=== PATIENT | male | born 1960 | race Caucasian/White ===

== ENCOUNTER → 2021-09-21 14:08 | Outpatient (CLI) | payer BC, SELFPAY ==
--- NOTE | 2021-09-21 14:28 | CA_ITS ---
FINAL REPORT TECHNIQUE: Color Doppler, duplex Doppler and compression sonography of the right lower extremity venous system was performed. CLINICAL HISTORY: BRUISING POST MID CALF WITH A KNOT,NKI,PT ON ASA AND BRILINTA FINDINGS: There is no evidence of deep venous thrombosis from the level of the groin to the calf. The veins are patent and compressible. There is a 1.8 cm cystic and solid area in the right posterior calf of uncertain etiology but may represent a hematoma or mass. IMPRESSION: No evidence of deep venous thrombosis right lower extremity. Cystic and solid area in the right posterior calf may represent a hematoma or mass. Consider follow-up ultrasound. Reviewed, Interpreted and Dictated by Jimi Novak III, MD Transcribed by Jessica Kruger Authenticated and [facility]
== END ==
PROVIDERS: PCP Internal Medicine Adolescent Medicine; Visit Provider Internal Medicine Adolescent Medicine
DX: M79.661 Pain in right lower leg (principal); Z79.01 Long term (current) use of anticoagulants
CPT/HCPCS: 93971

== ENCOUNTER 2022-01-26 14:34 | Emergency (ER) | payer BC, SELFPAY ==
[2022-01-26 14:45] VITALS: BP 131/92; PULSE 78; RESP 18; TEMP 36.5; O2SAT 100; BMI 25.1
[2022-01-26 14:50] VITALS: BP 138/82; PULSE 83; RESP 18; TEMP 36.8; O2SAT 98; BMI 25.8
[2022-01-26 15:20] VITALS: BP 0/0; PULSE 83; RESP 18; TEMP 36.8; O2SAT 98
--- NOTE | 2022-01-26 15:26 | EXP.UTC ---
Discharge Plan Disposition Patient Disposition: Home, Self-Care Condition: Good Prescriptions Prescriptions: New amoxicillin 500 mg capsule 500 mg PO BID 5 Days Qty: 10 0RF Referrals Follow up/Referrals: Kumar Price MD [Primary Care Provider] - See instructions Activity Restrictions/Add. Instructions Additional Instructions/Restrictions: ice pack to area 20 min every couple hours to help with swelling and bruising Suture instructions: ?You have required stitches today. Please read the following instructions so you know how to care for them: ?1. Keep wound area dry for the first 24 hours. 2?? May clean gently with mild soap and water, after 48 hours to prevent crusting over suture knots. 3. You may shower if your provider gives permission but do not take a bath until the skin is healed.. 4. Never leave a wet dressing or Band-Aid on your stitches as this allows bacteria to reach the area and may cause infection. Band-aids can cause the wound to sweat and not recommended to wear for long periods of time Watch for signs of infection: ? Increasing redness, tenderness or warmth around the suture site ? Unusual swelling around the site ? Appearance of pus around each suture or any red streaks ? Fever If you develop any of the above signs or symptoms of infection, Follow up with Family Physician immediately 5. Suture removal in _8-10___days 6. Return to [facility] or follow up with family doctor for removal. This can be done by any medical provider dur?ing regular hours on Friday through Friday, by appointment. Clinical Impressions Clinical Impression: Laceration Instructions Patient Instructions: DI for Laceration Repair, DI for Hematoma (Bruise) Discharge ED Provider: Pamela Ansari [facility] HPI General Stated complaint: AO 01/26@home@1420 lac on back of Rt hand Mode of Arrival: Ambulatory Source of Information: Patient Limitations: No Limitations Time Seen by Provider: 01/26/22 15:26 Description of Symptoms (Recalled from Triage Doc. 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 HEENT Symptoms (Recalled from RN notes): No Resp Symptoms (Recalled from RN notes): No Skin Symptoms (Recalled from RN notes): Yes MS Symptoms (Recalled from RN notes): No Functional Status (Recalled from RN notes): WNL History of Present Illness Provider Complaint: Patient state that he was working on [employer] when his hand slipped and he hit the top of his hand against a piece of metal States that he is on blood thinners and it was bleeding so he came in Related Data Previous Rx's Medication Instructions Recorded amoxicillin 500 mg capsule 500 mg PO BID 5 days #10 caps 01/26/22 Allergies Allergy/AdvReac Type Severity Reaction Status Date / Time No Known Allergies Allergy Verified 01/26/22 15:12 Worker's Comp Is this a Worker's Comp case?: No PFSH PFSH Social History Smoking Status: Unknown if ever smoked alcohol intake: never current occupational status: employed Travel in the last 8 weeks: None ROS Obtained: Yes All systems reviewed & no additional complaints except as documented and Yes Systems reviewed as appropriate & no additional complaints except as documented Constitutional Constitutional: Reports system reviewed and no additional complaints, except as documented and Reports as per HPI Integumentary/Breasts Skin/Breast: Reports system reviewed and no additional complaints, except as documented, Reports as per HPI and Reports other (laceration to top of hand) Physical Exam General General appearance: alert and in no apparent distress Respiratory Respiratory exam: Present normal lung sounds bilaterally and respiratory distress Cardiovascular Cardiovascular exam: Present regular rate and normal rhythm Expanded Upper Extremity Exam Right: Hand exam: Present laceration Hand L/R back image: 1. laceration with bruising noted and swelling slow bleedi
== END 2022-01-26 16:05 | disposition home or self-care (01) ==
PROVIDERS: Emergency Provider Nurse Practitioner; PCP Internal Medicine Adolescent Medicine
DX: S61.411A Laceration without foreign body of right hand, initial encounter (principal); W26.8XXA Contact with other sharp object(s), not elsewhere classified, initial encounter; Z23 Encounter for immunization
CPT/HCPCS: 12001; 90471; 90715; 99213; G0463

== ENCOUNTER 2022-02-04 08:21 | Emergency (ER) | payer BC, SELFPAY ==
[2022-02-04 08:21] VITALS: BP 113/76; PULSE 89; RESP 18; TEMP 36.6; O2SAT 100; BMI 24.8
[2022-02-04 09:13] VITALS: BP 113/76; PULSE 89; RESP 18; TEMP 36.6; O2SAT 100
== END 2022-02-04 09:14 | disposition home or self-care (01) ==
PROVIDERS: Emergency Provider Nurse Practitioner; PCP Internal Medicine Adolescent Medicine
DX: Z48.02 Encounter for removal of sutures (principal)

== ENCOUNTER 2022-08-25 15:30 | Emergency (ER) | payer BC, SELFPAY ==
[2022-08-25 15:40] VITALS: BP 120/83; PULSE 93; RESP 22; TEMP 36.9; O2SAT 97; BMI 25.1
--- NOTE | 2022-08-25 16:10 | EXP.UTC ---
Discharge Plan Disposition Patient Disposition: Home, Self-Care Condition: Good Prescriptions Prescriptions: New amoxicillin-pot clavulanate 875-125 mg Tablet 1 tab PO Q12H Qty: 20 0RF guaifenesin [Mucinex] 600 mg tablet extended release 12hr 600 - 1,200 mg PO BID PRN (Reason: cough) Qty: 20 0RF No Action amoxicillin 500 mg capsule 500 mg PO BID 5 Days Qty: 10 0RF Referrals Follow up/Referrals: Kumar Price MD [Primary Care Provider] - See instructions Activity Restrictions/Add. Instructions Additional Instructions/Restrictions: Drink extra fluids with and between meals. If you have difficulty drinking, try very small amounts of water or suck on ice chips. ? Avoid fruit juices, as these do not replace minerals and can actually increase diarrhea. ? Children and adults can use sports drinks to replenish electrolytes. Younger children and infants should use products formulated for children, like oral rehydration solutions. ? Eat food in small amounts and let your stomach recover. ? Get lots of rest. You may feel tired or weak. ? No greasy or fried foods for the next 24-48 hours BRAT diet Bananas Rice Apples and Everest ? Make sure to drink plenty of liquids ? Return if needed ? Straight to ER if any life threatening symptoms ? You was given an outpatient order for diarrhea panel, please collect specimen and bring back to outpatient lab then call back to the [facility] or follow up with family doctor for results ? Follow up with family doctor in the next 48-72 hours if no improvement or any worsening of symptoms Clinical Impressions Clinical Impression: Bronchitis Sinusitis Qualifiers: Sinusitis location: unspecified location Chronicity: unspecified Qualified Code(s): J32.9 - Chronic sinusitis, unspecified Instructions Patient Instructions: Sinusitis, Diarrhea, Acute Bronchitis, DI for Sinusitis Discharge ED Provider: Pamela Ansari [facility] HPI General Stated complaint: chest se, diarrhea Mode of Arrival: Ambulatory Source of Information: Patient Limitations: No Limitations Time Seen by Provider: 08/25/22 16:10 Description of Symptoms (Recalled from Triage Doc. by RN): PATIENT C/O CHEST CONGESTION FOR APPROX 2.5 WEEKS AND DIARRHEA SINCE FRIDAY NIGHT HEENT Symptoms (Recalled from RN notes): No Resp Symptoms (Recalled from RN notes): Yes Skin Symptoms (Recalled from RN notes): No MS Symptoms (Recalled from RN notes): No Functional Status (Recalled from RN notes): WNL History of Present Illness Provider Complaint: Patient states that he has been having sinus pain and pressure along with congestion in his chest that seems to have come and gone for the last 2 weeks and he is coughing up some mucous at times States that then on Friday night he started with diarrhea States that he does have some pressure behind his eyes and worried that it may be trying to settle in his chest Related Data Previous Rx's Medication Instructions Recorded amoxicillin 500 mg capsule 500 mg PO BID 5 days #10 caps 01/26/22 amoxicillin 875 mg-potassium 1 tab PO Q12H #20 tabs 08/25/22 clavulanate 125 mg tablet guaifenesin 600 mg tablet, 600 - 1,200 mg PO BID PRN cough 08/25/22 extended release 12 hr (Mucinex) #20 tabs Allergies Allergy/AdvReac Type Severity Reaction Status Date / Time No Known Allergies Allergy Verified 01/26/22 15:12 Worker's Comp Is this a Worker's Comp case?: No [facility] Disclaimer: The information contained in this section may have been updated after the patient was seen, as this information can be updated by other users. Social History (Updated 01/26/22 @ 16:00 by Pamela Ansari APRN) Smoking Status: Unknown if ever smoked alcohol intake: never current occupational status: employed Travel in the last 8 weeks: None ROS Obtained: Yes All systems reviewed & no additional complaints except as documented and Y
[2022-08-25 16:23] VITALS: BP 120/83; PULSE 93; RESP 22; TEMP 36.9; O2SAT 97
== END 2022-08-25 16:42 | disposition home or self-care (01) ==
PROVIDERS: Emergency Provider Nurse Practitioner; PCP Internal Medicine Adolescent Medicine
DX: J20.9 Acute bronchitis, unspecified (principal); J01.90 Acute sinusitis, unspecified; R19.7 Diarrhea, unspecified
CPT/HCPCS: 99212; 99214; G0463

== ENCOUNTER 2023-05-25 08:03 | Observation (INO) | payer MEDICARE, BC, SELFPAY ==
[2023-05-25] VITALS (11 sets, daily range): BP systolic 92–119; BP diastolic 59–78; PULSE 60–70; RESP 16–20; TEMP 36.5–36.9; O2SAT 94–97; BMI 25.8; BMI 25.1
--- NOTE | 2023-05-25 08:08 | ECG_ITS ---
APPROVED REPORT Exam: Resting ECG HR:60 bpm ECG Measurements Heart Rate 60 AXES AL 131 P 36 QRSd 192 QRS 252 QT 451 T 160 QTc 452 Conclusion ELECTRONIC ATRIAL PACEMAKER ELECTRONIC VENTRICULAR PACEMAKER ABNORMAL RHYTHM ECG UNCONFIRMED REPORT Electronically signed by : Kumar Price MD 05/26/2023 17:58:48
--- NOTE | 2023-05-25 08:28 | PC.NURSE ---
Dr. Schulz at [facility] for pt eval
--- NOTE | 2023-05-25 08:38 | XR_ITS ---
PROCEDURE INFORMATION: Exam: XR Chest Exam date and time: 05/25/2023 8:38 AM Age: 63 years old Clinical indication: Dyspnea; Prior surgery; Surgery date: 6+ months; Surgery type: Pacemaker TECHNIQUE: Imaging protocol: Radiologic exam of the chest. Views: 1 view. COMPARISON: No relevant prior studies available. FINDINGS: Tubes, catheters and devices: Cardiac rhythm maintenance device is in place. Lungs: Unremarkable. No consolidation. Pleural spaces: Unremarkable. No pleural effusion. No pneumothorax. Heart/Mediastinum: Unremarkable. No cardiomegaly. Bones/joints: Unremarkable. IMPRESSION: No acute findings.
--- NOTE | 2023-05-25 08:39 | ED_ITS ---
Discharge Plan Disposition Patient Disposition: Still a Patient Prescriptions Prescriptions: No Action guaifenesin [Mucinex] 600 mg tablet extended release 12hr 600 - 1,200 mg PO BID PRN (Reason: cough) Qty: 20 0RF atorvastatin 80 mg tablet 80 mg PO DAILY Patient Comments: TAKE 1 TABLET BY MOUTH EVERY DAY FOR 30 DAYS metoprolol succinate 100 mg tablet extended release 24 hr 100 mg PO DAILY Patient Comments: TAKE 1 TABLET BY MOUTH EVERY DAY DO NOT CRUSH OR CHEW clopidogrel 75 mg tablet 75 mg PO DAILY Patient Comments: TAKE 1 TABLET BY MOUTH EVERY DAY spironolactone 25 mg tablet 25 mg PO DAILY Patient Comments: TAKE 1 TABLET BY MOUTH EVERY DAY gabapentin 300 mg capsule 300 mg PO TID Patient Comments: TAKE 1 CAPSULE BY MOUTH 4 TIMES A DAY. Jardiance 10 mg tablet 10 mg PO DAILY Patient Comments: TAKE 1 TABLET BY MOUTH EVERY DAY Entresto 97-103 mg tablet 1 tab PO DAILY Patient Comments: TAKE 1 TABLET BY MOUTH TWICE A DAY FOR 90 DAYS Referrals Follow up/Referrals: Kumar Price MD [Primary Care Provider] - See instructions Clinical Impressions Clinical Impression: Unstable angina Discharge ED Provider: Padma Schulz [facility] General Chief Complaint: Chest Pain Stated Complaint: Angina with nitroglycerin, Sent by [employer] Time Seen by Provider: 05/25/23 08:27 Mode of Arrival: Ambulatory Source of Information: Patient and Spouse Limitations: No Limitations Description of Symptoms (Recalled from ER Triage Doc. by RN): pt had one episode of chest pressure last night at 2000 and took one nitro and got relief. p-t had cardiac hx and sees at and was advised to come this morning and get checked out. pt has a pacer/defib History of Present Illness HPI narrative: Patient is a 63-year-old male present today with chest pain. Has a known history of coronary artery disease had an [place] in 2018 and subsequently developing heart failure with an ejection fraction of 25 to 35% has an AICD and pacemaker in place. He is followed by [facility] cardiology. Has had a stress test since that time last year but no intervention has been done specifically no left heart cath has been done since 2018. Last night around 730 began having substernal chest discomfort radiating into his left arm no diapho resis or definitive exertional component of this. Also was not dyspneic in association with this. This lasted about 2 to 2-1/2 hours and has since resolved. However he woke up and was extremely fatigued this morning. No ongoing chest pain. He called his soils technician late last evening and was called by his soils technician and told to come to the emergency department today. Related Data Home Medications Medication Instructions Recorded Confirmed atorvastatin 80 mg tablet 80 mg PO DAILY 05/25/23 05/25/23 clopidogrel 75 mg tablet 75 mg PO DAILY 05/25/23 05/25/23 empagliflozin 10 mg tablet 10 mg PO DAILY 05/25/23 05/25/23 (Jardiance) gabapentin 300 mg capsule 300 mg PO TID 05/25/23 05/25/23 metoprolol succinate 100 mg 100 mg PO DAILY 05/25/23 05/25/23 tablet,extended release 24 hr sacubitril 97 mg-valsartan 103 mg 1 tab PO DAILY 05/25/23 05/25/23 tablet (Entresto) spironolactone 25 mg tablet 25 mg PO DAILY 05/25/23 05/25/23 Previous Rx's Medication Instructions Recorded guaifenesin 600 mg tablet, 600 - 1,200 mg PO BID PRN cough 08/25/22 extended release 12 hr (Mucinex) #20 tabs Allergies Allergy/AdvReac Type Severity Reaction Status Date / Time No Known Allergies Allergy Verified 01/26/22 15:12 [facility] Disclaimer: The information contained in this section may have been updated after the patient was seen, as this information can be updated by other users. Social History (Updated 01/26/22 @ 16:00 by Pamela Ansari APRN) Smoking Status: Never smoker alcohol intake: never current occupational status: employed Travel in the last 8 weeks: None ROS Obtained: Yes All systems reviewed & no additional complaints except as documented Physical Exam General General appearance: alert Respiratory Respiratory exam: Present normal lung sounds bilaterally Cardiovascular Cardiovascular exam: Present regular rate and normal rhythm Neurological Exam Neurological exam: Present alert HEART Score HEART Score HEART Score assessment performed?: Yes History (anamnesis): Highly suspicious ECG: Non-specific disturbance Age: 45-65 years Risk factors: Atherosclerosis history Troponin: </= normal limit HEART Score: 6 Critical Care Critical Care Time Critical Care Time: Yes Attestation: On 05/25/23, the high probability of a clinically significant, sudden or life threatening deterioration of the following system(s) required my full and direct attention, intervention and personal management. The time I documented below is in addition to time spent performing reported procedures but includes the following listed in this critical care notation. Total Time Total Critical Care Time: 35 Medical Decision Making Jaren Inquiry Pt receiving controlled substance: No Vital Signs Vital Signs: 05/25/23 08:05 05/25/23 08:18 05/25/23 08:30 Temperature 97.7 F Temperature Source Oral Pulse Rate 63 70 Pulse Rate [Right Radial] 63 Respiratory Rate 17 17 Blood Pressure 117/78 Blood Pressure [Right Arm] 111/77 Blood Pressure Mean [Right Arm] 88 02 Sat by Pulse Oximetry 97 96 Oxygen Delivery Method Room Air Room Air 05/25/23 09:00 05/25/23 09:30 Temperature Temperature Source Pulse Rate 64 60 Pulse Rate [Right Radial] Respiratory Rate 16 16 Blood Pressure 92/59 L 95/61 L Blood Pressure [Right Arm] Blood Pressure Mean [Right Arm] 02 Sat by Pulse Oximetry 95 95 Oxygen Delivery Method Room Air Room Air Lab Data Lab results reviewed: Yes I reviewed the patient's lab results. Labs: Lab Results 05/25/23 08:15: WBC 5.3, RBC 6.32 H, Hgb 18.2 H, Hct 54.7 H, MCV 86.6, MCH 28.6, MCHC 33.1, RDW 14.3, Plt Count 142, MPV 8.1, Neut % (Auto) 71.4, Lymph % (Auto) 17.2, [place] % (Auto) 7.7, Eos % (Auto) 3.2, Baso % (Auto) 0.5, Neut # (Auto) 3.8, Lymph # (Auto) 0.9, [place] # (Auto) 0.4, Eos # (Auto) 0.2, Baso # (Auto) 0.0, Sodium 138, Potassium 4.0, Chloride 105, Carbon Dioxide 26, Anion Gap 11.0, BUN 16, Creatinine 1.20, Estimated Creat Clear 69, Estimated GFR 61, Est GFR ( Amer) 74, Glucose 109 H, Calcium 9.0, Total Bilirubin 1.5 H, AST 34, ALT 37, Alkaline Phosphatase 71, Troponin I < 0.01, Total Protein 6.9, Albumin 4.2, Globulin 2.7, Albumin/Globulin Ratio 1.6, Lipase 38 05/25/23 08:15 05/25/23 08:15 Response Orders (Tests/Meds): ED MEDICATIONS Generic Name Dose Route Start Last Admin Trade Name Deborah PRN Reason Stop Dose Admin Aspirin 243 mg 05/25/23 10:07 Aspirin 81mg Chewable Tablet PO 05/25/23 10:08 ONCE ONE ORDERS Category Date Time Status CXR --portable [XR chest portable] Stat Exams 05/25/23 08:38 Completed CBC w/Auto Diff [Complete Blood Count Auto Diff] Stat Lab 05/25/23 08:15 Completed CMP [Comprehensive Metabolic Panel] Stat Lab 05/25/23 08:15 Completed Lipase Stat Lab 05/25/23 08:15 Completed Trop I [Troponin I] Stat Lab 05/25/23 08:15 Completed Troponin I Q3H Lab 05/25/23 11:45 Ordered Troponin I Q3H Lab 05/25/23 14:45 Ordered ECG Data Tracing #1: Attestation: I reviewed this ECG and interpreted as documented below: ECG Narrative: Ventricular rate of 60 there is an electronic atrial pacemaker electronic ventricular pacemaker Sgarbossa is negative cannot rule out ischemia appropriately paced rhythm from atrial and ventricular standpoint MDM Narrative Medical Decision Narrative: Patient is an asymptomatic 63-year-old male presents today after chest pain episode yesterday evening. With his particular history of coronary disease and known heart failure he has very high risk. His symptoms certainly sound like an anginal episode last night. I do not suspect pulmonary embolism etc. At this point he should have an elevation in the troponin from a single test if there was an injury. I discussed with him that my recommendation will be for downstream cardiology testing regardless of whether or not there is an elevation of his troponin at this point as he would not fall into the low risk category utilizing heart scoring. I have asked him to decide whether not he wants to be followed at [facility] and be intervened there or whether he would be okay staying at [facility] to be evaluated by her soils technician. Will reassess after his troponin has returned. EKG is nonactionable. Is appropriately paced but cannot rule out ischemia. Reassessment 10:15 AM patient remains asymptomatic chest x-ray performed to person interpreted shows no acute cardiopulmonary emergency. Troponin is negative. Patient still very high risk from a restratification standpoint. Remainder of his workup is negative. I discussed with him whether or not he wanted to have me discuss his case with [facility]ology versus staying here and having a left heart cath with Dr. Gutierrez. After extensive discussion we had shared decision-making with staying at this hospital and having an intervention here if necessary. I spoke with Dr. Gutierrez who agreed with this plan. I subsequently spoke to Dr. Burch with hospital medicine who will admit the patient for further evaluation and treatment with the plan today The patient tomorrow.
[2023-05-25 08:44] LABS: Basophils % 0.5 % (0.1-2.0); Eosinophils # 0.2 K/mm3 (0.0-0.4); Eosinophils % 3.2 % (0.1-12.0); Hematocrit 54.7 % (42.0-52.0); Lymphocytes # 0.9 K/mm3 (0.7-4.5); Lymphocytes % 17.2 % (10-50); Mean Corpuscular HGB Conc 33.1 g/dL (31.8-35.4); Mean Corpuscular Hemoglobin 28.6 pg (27.0-31.2); Mean Corpuscular Volume 86.6 fl (80-94); Mean Platelet Volume 8.1 fl (7.4-10.4); Monocytes # 0.4 K/mm3 (0.1-1.0); Monocytes % 7.7 % (1.7-9.3); Neutrophils # 3.8 K/mm3 (1.8-7.8); Neutrophils % 71.4 % (37.0-80.0); Platelet Count 142 K/mm3 (142-424); Red Blood Count 6.32 M/mm3 (4.60-6.20); Red Cell Distribution Width 14.3 % (11.5-17.5); White Blood Count 5.3 K/mm3 (4.8-10.8)
[2023-05-25 08:45] LABS: Chloride 105 mmol/L (98-107); Sodium 138 mmol/L (136-145)
[2023-05-25 08:47] LABS: Alanine Aminotransferase 37 U/L (12-78); Alkaline Phosphatase 71 U/L (38-126); Aspartate Amino Transferase 34 U/L (17-59); Bilirubin,Total 1.5 mg/dl (0.2-1.3); Blood Urea Nitrogen 16 mg/dl (9-20); Creatinine Clearance Estimated 69 mL/min (50-200); Estimated Glomerular Filt Rate 61 ml/min (>60); GFR (African American) 74 ML/MIN (>60); Lipase 38 U/L (23-300)
[2023-05-25 08:48] LABS: Albumin Level 4.2 g/dl (3.5-5.0); Albumin/Globulin Ratio 1.6 (1.1-1.8); Carbon Dioxide 26 mmol/L (22.0-30.0); Globulin 2.7 g/dL (1.3-3.2); Glucose 109 mg/dl (74-100); Total Protein,Serum 6.9 g/dl (6.3-8.2)
[2023-05-25 08:55] LABS: Hemoglobin 18.2 g/dL (14.1-18.0)
[2023-05-25 09:02] LABS: Troponin I < 0.01 ng/ml (0.00-0.034)
--- NOTE | 2023-05-25 09:43 | PC.NURSE ---
Dr. Schulz at [facility] to update pt/visitor on results and POC
--- NOTE | 2023-05-25 09:50 | PC.NURSE ---
DR HAYS SPEAKING WITH DR CHERRY
--- NOTE | 2023-05-25 09:54 | PC.NURSE ---
DR HAYS ATTEMPTED TO CONTACT DR BENDER
--- NOTE | 2023-05-25 09:58 | PC.NURSE ---
DR HAYS SPEAKING WITH DR BENDER
--- NOTE | 2023-05-25 10:02 | PC.NURSE ---
PILOT [employer]AT CAPTAIN NOTIFIED OF ADMISSION
--- NOTE | 2023-05-25 10:15 | PC.NURSE ---
Placed order for lunch tray
[2023-05-25] MEDS: ASPIRIN 81MG CHEWABLE TABLET 243 MG PO (10:55)
[2023-05-25] MEDS: HEPARIN SODIUM 5,000 UNIT/ML VIAL 5000 UNIT SQ ×2 (10:55→21:43)
--- NOTE | 2023-05-25 12:03 | HMH.PHAINT1 ---
Pharmacy Intervention Comments: MEDICATION RECONCILIATION COMPLETE USING EXTERNAL PHARMACY FILL HISTORY.
[2023-05-25 12:18] LABS: Troponin I < 0.01 ng/ml (0.00-0.034)
--- NOTE | 2023-05-25 12:22 | PC.NURSE ---
PT provided with lunch tray and assisted with set up. No other needs voiced and call light within reach.
[2023-05-25] MEDS: GABAPENTIN 300MG CAPSULE 300 MG PO ×2 (12:37→21:43)
--- NOTE | 2023-05-25 13:07 | EXP.HP ---
History of Present Illness *Admission Date: 05/25/23 *Reason for visit:: Chest pain *History of present illness: Mr. Rg is a 63-year-old male with extensive cardiac history. Previous MO in 2018, subsequently developed heart failure with reduced ejection fraction approximately 25%. Has had a pacemaker/defibrillator in place since. Generally follows at with cardiology. States that he had an increased episode of chest pressure last night that got better with nitro. Shortness of breath is stable but chronic. Denies any nausea or vomiting. No syncope. Chest pressure caused him to come to the ER for evaluation. Initial troponin negative. No new ischemic changes on EKG. Given significant cardiac history and high risk patient, cardiology was contacted. Recommend admission for further management. Medicine consulted for admission. On evaluation, patient reports that he was more tired this morning than usual. is at bedside with him. No chest pain at this time. Stable on room air. [facility] Disclaimer: The information contained in this section may have been updated after the patient was seen, as this information can be updated by other users. Medical History CAD (coronary artery disease) Cardiac pacemaker in situ HFrEF (heart failure with reduced ejection fraction) Social History Smoking Status: Never smoker alcohol intake: never current occupational status: employed Travel in the last 8 weeks: None Review of Systems Review of Systems Review of systems (narrative): 14 point review of systems performed, pertinent positives and negatives as per [facility] Meds Home Medications and Allergies Home Medications Medication Instructions Recorded Confirmed Type aspirin 81 mg tablet,delayed 81 mg PO DAILY 05/25/23 05/25/23 History release atorvastatin 80 mg tablet 80 mg PO DAILY Cholesterol 05/25/23 05/25/23 History clopidogrel 75 mg tablet 75 mg PO DAILY Blood Thinner 05/25/23 05/25/23 History empagliflozin 10 mg tablet 10 mg PO DAILY Heart Disease 05/25/23 05/25/23 History (Jardiance) gabapentin 300 mg capsule 300 mg PO TID NERVE PAIN 05/25/23 05/25/23 History guaifenesin 600 mg tablet, 600 - 1,200 mg PO BIDP PRN Cough 05/25/23 05/25/23 History extended release 12 hr (Mucinex) metoprolol succinate 100 mg 100 mg PO DAILY High Blood Pressure 05/25/23 05/25/23 History tablet,extended release 24 hr sacubitril 97 mg-valsartan 103 mg 1 tab PO BID High Blood Pressure 05/25/23 05/25/23 History tablet (Entresto) spironolactone 25 mg tablet 25 mg PO DAILY Fluid 05/25/23 05/25/23 History New Prescriptions to Start Prescriptions: Allergies Allergy/AdvReac Type Severity Reaction Status Date / Time No Known Allergies Allergy Verified 01/26/22 15:12 Exam Data for Last 24 hours Vital signs and Labs for Last 24 Hours: Temp Pulse Resp BP Pulse Ox O2 Del Method 97.7 F 60 20 104/78 L 94 L Room Air 05/25/23 08:05 05/25/23 11:54 05/25/23 11:54 05/25/23 11:54 05/25/23 11:54 05/25/23 11:54 Laboratory Results - last 24 hr 05/25/23 08:15: WBC 5.3, RBC 6.32 H, Hgb 18.2 H, Hct 54.7 H, MCV 86.6, MCH 28.6, MCHC 33.1, RDW 14.3, Plt Count 142, MPV 8.1, Neut % (Auto) 71.4, Lymph % (Auto) 17.2, [place] % (Auto) 7.7, Eos % (Auto) 3.2, Baso % (Auto) 0.5, Neut # (Auto) 3.8, Lymph # (Auto) 0.9, [place] # (Auto) 0.4, Eos # (Auto) 0.2, Baso # (Auto) 0.0, Sodium 138, Potassium 4.0, Chloride 105, Carbon Dioxide 26, Anion Gap 11.0, BUN 16, Creatinine 1.20, Estimated Creat Clear 69, Estimated GFR 61, Est GFR ( Amer) 74, Glucose 109 H, Calcium 9.0, Total Bilirubin 1.5 H, AST 34, ALT 37, Alkaline Phosphatase 71, Troponin I < 0.01, Total Protein 6.9, Albumin 4.2, Globulin 2.7, Albumin/Globulin Ratio 1.6, Lipase 38 05/25/23 11:19: Troponin I < 0.01 I & O for Last 24 hours: Intake & Output 05/22/23 05/23/23 05/24/23 05/25/23 23:59 23:59 23:59 23:59 Weight 79.379 kg Constitutional Constitutional: no acute distress *Routine HEENT Exam Head: Present normocephalic Eye: Present EOMI and PERRL ENT: Present mucous membranes moist *Routine Neck Exam Neck: Present supple; Absent lymphadenopathy Routine Chest/Breast/Axilla Exam Chest wall: Present pacemaker *Routine Respiratory Exam Respiratory: Present CTA bilaterally *Routine Cardiovascular Exam Cardiovascular: Present RRR *Routine Abdominal Exam Abdominal: Present soft and normoactive bowel sounds; Absent tenderness *Routine Rectal Exam Rectal:: deferred *Routine Genitalia Exam Genitalia:: deferred *Routine Extremities Exam Extremities: Absent cyanosis, clubbing or edema *Routine Skin Exam Skin: Present warm; Absent rash *Routine Neurological Exam Neurological: Present alert, oriented X3 and moving all extremities; Absent altered mental status Assessment and Plan *Assessment and plan (1) Unstable angina: Status: Acute Category: Medical Code(s): I20.0 - Unstable angina (2) CAD (coronary artery disease): Status: Acute Category: Medical Code(s): I25.10 - Atherosclerotic heart disease of [place] coronary artery without angina pectoris (3) HFrEF (heart failure with reduced ejection fraction): Status: Acute Category: Medical Code(s): I50.20 - Unspecified systolic (congestive) heart failure (4) Cardiac pacemaker in situ: Status: Acute Category: Medical Code(s): Z95.0 - Presence of cardiac pacemaker Plan 63-year-old male with extensive cardiac history, MO in 2018. Presents with unstable angina at rest. Discussed case with ER physician, requests for serial troponins, monitoring on telemetry, and cardiology consult in the morning. Medicine agreed to admit for further management. Problems addressed as follows: Unstable angina CAD Heart failure with reduced ejection fraction Hypertension -Presents with onset and angina initial troponin negative. -Cardiology consulted, appreciate their recommendations. N.p.o. at midnight for possible heart cath tomorrow -Continue as 1 mg daily, Lipitor 80 mg nightly, Plavix 75 mg daily Jardiance 10 mg daily, metoprolol 100 mg daily, Entresto twice daily, spironolactone 25 mg daily -Echo ordered for the morning -EKG reviewed, no acute ischemic changes on personal review Labs relatively normal. Kidney function normal with BUN 16, creatinine 1.2. No leukocytosis. Serial troponins less than 0.01. Repeat CBC, CMP, magnesium ordered for the morning. Full code Cardiac diet, n.p.o. at midnight Heparin 5000 units 3 times daily
--- NOTE | 2023-05-25 13:18 | PC.NURSE ---
Rounded on pt. Bed adjusted per request. No other needs voiced and call light within reach.
--- NOTE | 2023-05-25 14:23 | PC.NURSE ---
Called report to Eloise BEACH on 2nd floor and answered all questions
--- NOTE | 2023-05-25 15:16 | PC.NURSE ---
patient arrived at 2:49 from ED
[2023-05-25 16:34] LABS: Troponin I < 0.01 ng/ml (0.00-0.034)
[2023-05-25] MEDS: SACUBITRIL/VALSARTAN 24-26MG TABLET 4 EACH PO (21:42)
[2023-05-26] VITALS (13 sets, daily range): BP systolic 96–115; BP diastolic 60–74; PULSE 54–74; RESP 16–22; TEMP 36.4–37; O2SAT 93–96; BMI 25.2
[2023-05-26] MEDS: HEPARIN SODIUM 5,000 UNIT/ML VIAL 5000 UNIT SQ (01:57)
--- NOTE | 2023-05-26 06:00 | CA_ITS ---
APPROVED REPORT EXAM: Comprehensive 2D, Doppler, and color-flow Echocardiogram Financial Intern: Saira Alvares RDCS Ht: 5 ft 9 in Wt: 170lbs BSA: 1.93 BP: 104/78 mmHg Indications: CP, CAD CM, DECREASED EF, CHF M-Mode Dimensions RVDd 2.53 cm (0.9-2.6) LA Diam 3.55 cm (1.9-4.0) LVDd 6.10 cm (3.5-5.7) LVDs 4.50 cm (3.5-5.7) IVSd 0.80 cm (0.6-1.1) PWd 0.96 cm (0.6-1.1) EF (Teich) 50.60% FS 26.20% EDV (Teich) 186.90 mL ESV (Teich) 92.40 mL LV Diastology E Decel Time 193 (160-240 msec) E/A Ratio 0.5 Mitral Valve MV E Max Jonnie. 30.0 (40-130 cm/s) MV A Velocity 60.0 (40-130 cm/s) E/A Ratio 0.49 MV PHT 57.0 ms Left Ventricle The left ventricle is mildly dilated (LVEDVi 84 ml/m2). Left ventricular systolic function is severely decreased. There is normal left ventricular wall thickness. There is akinesis of the mid to distal septal, anteroseptal, inferseptal LV mcconnell. The LV apex appears akinetic. Grade 1 diastolic dysfunction is present. An possible echodensity is noted in the LV apex. This finding is of uncertain clinical significance in the setting of no administration of ultrasound enhancing agent. LVEF is 25%. Right Ventricle The right ventricle is normal size. The right ventricular systolic function is normal. Atria The left atrium size is normal. The right atrium size is normal. There is no Doppler evidence of interatrial shunt. Aortic Valve The aortic valve opens well. There is no aortic valvular stenosis. No aortic regurgitation is present. Mitral Valve The mitral valve is normal in structure. No evidence of mitral valve stenosis. There is no mitral valve regurgitation noted. Tricuspid Valve The tricuspid valve leaflets are thin and pliable. Trace tricuspid regurgitation. There is insufficient TR jet to estimate RVSP. Pulmonic Valve The pulmonary valve is normal in structure. Mild pulmonic regurgitation. Great Vessels The aortic root is normal in size. The ascending aorta is normal in size. IVC is normal in size and collapses >50% with inspiration. Pericardium There is no pericardial effusion. Other Information Study Quality: Fair Conclusion Severely reduced LV systolic function (LVEF 25%). Akinesis of the mid to distal septal, anteroseptal, inferseptal LV mcconnell. The LV apex is also akinetic. A possible echodensity is noted in the LV apex. This finding is of uncertain clinical significance in the setting of no administration of ultrasound enhancing agent. Further evaluation with limited TTE using ultrasound enhancing agent is recommended to evaluate the echodensity in the LV apex and rule out LV apical thrombus vs. artifact. Electronically signed by : Poonam Martinez MD 05/26/2023 11:07:07
[2023-05-26 07:57] LABS: Eosinophils # 0.2 K/mm3 (0.0-0.4); Mean Corpuscular HGB Conc 33.8 g/dL (31.8-35.4); Monocytes # 0.5 K/mm3 (0.1-1.0)
[2023-05-26 08:09] LABS: Basophils % 0.7 % (0.1-2.0); Eosinophils % 3.7 % (0.1-12.0); Hematocrit 54.9 % (42.0-52.0); Lymphocytes # 0.9 K/mm3 (0.7-4.5); Lymphocytes % 18.1 % (10-50); Mean Corpuscular Hemoglobin 28.3 pg (27.0-31.2); Mean Corpuscular Volume 83.6 fl (80-94); Mean Platelet Volume 7.9 fl (7.4-10.4); Monocytes % 8.9 % (1.7-9.3); Neutrophils # 3.6 K/mm3 (1.8-7.8); Neutrophils % 68.7 % (37.0-80.0); Platelet Count 121 K/mm3 (142-424); Red Blood Count 6.57 M/mm3 (4.60-6.20); Red Cell Distribution Width 14.2 % (11.5-17.5); White Blood Count 5.2 K/mm3 (4.8-10.8)
[2023-05-26 08:16] LABS: Hemoglobin 18.6 g/dL (14.1-18.0)
[2023-05-26 08:41] LABS: Chloride 104 mmol/L (98-107)
[2023-05-26 08:42] LABS: Potassium 4.4 mmoL/L (3.5-5.1); Sodium 136 mmol/L (136-145)
[2023-05-26 08:44] LABS: Alanine Aminotransferase 31 U/L (12-78); Aspartate Amino Transferase 32 U/L (17-59); Blood Urea Nitrogen 17 mg/dl (9-20); Creatinine Clearance Estimated 67 mL/min (50-200); Estimated Glomerular Filt Rate 61 ml/min (>60); GFR (African American) 74 ML/MIN (>60)
[2023-05-26 08:45] LABS: Albumin/Globulin Ratio 1.4 (1.1-1.8); Alkaline Phosphatase 70 U/L (38-126); Anion Gap 8.4 mEq/L (5-15); Bilirubin,Total 1.5 mg/dl (0.2-1.3); Carbon Dioxide 28 mmol/L (22.0-30.0); Globulin 2.8 g/dL (1.3-3.2); Glucose 97 mg/dl (74-100); Magnesium 2.2 mg/dl (1.6-2.3); Total Protein,Serum 6.8 g/dl (6.3-8.2)
[2023-05-26] MEDS: SACUBITRIL/VALSARTAN 24-26MG TABLET 4 EACH PO (09:36)
[2023-05-26] MEDS: SPIRONOLACTONE 25MG TABLET 25 MG PO (09:36)
[2023-05-26] MEDS: CLOPIDOGREL 75MG TAB 75 MG PO (09:37)
[2023-05-26] MEDS: GABAPENTIN 300MG CAPSULE 300 MG PO ×2 (09:37→12:49)
[2023-05-26] MEDS: EMPAGLIFLOZIN 10MG TABLET 10 MG PO (09:37)
[2023-05-26] MEDS: ASPIRIN EC 81MG TABLET 81 MG PO (09:37)
[2023-05-26] MEDS: ATORVASTATIN 40MG TABLET 80 MG PO (09:37)
[2023-05-26] MEDS: METOPROLOL SUCCINATE XL 100MG TABLET 100 MG PO (09:37)
--- NOTE | 2023-05-26 10:17 | IR_ITS ---
APPROVED REPORT Patient Location: Inpatient PROCEDURES Left heart catheterization Left ventriculogram Selective coronary angiogram INDICATION History of ischemic cardiomyopathy, Unstable angina, Informed consent was obtained prior to the procedure. COMPLICATIONS NONE Estimated Blood Loss: LESS THAN 10 ML TECHNIQUE One percent lidocaine used to anesthetize the right anterior aspect of the wrist. The right radial artery was accessed via the Seldinger technique. A 6 [place] sheath was placed in the right radial artery. 2.5 mg of Verapamil, 800 mcg of nitroglycerin, 1mg Lidocaine and 5000 U Heparin were given through the arterial sheath. The papa catheter was also used to perform left heart catheterization, left ventriculogram and selective coronary angiogram. At the end of the procedure the sheath was removed good hemostasis was achieved using Traclet band, patient was transferred to the postop holding area in stable condition. ANGIOGRAPHIC RESULTS The left main artery Normal The left anterior descending artery Has stents in the proximal segment which are widely patent with mild diffuse 10% luminal irregularities within the stent. Distal to the stent there is 20 to 30% mid vessel stenoses with an additional 30 to 40% stenosis. Distally the vessel has 40 and 50% stenoses The circumflex artery Dominant with mild diffuse 10 to 20% luminal irregularities The right coronary artery Nondominant with mid vessel and distal 30 to 40% stenoses The YO ventriculogram reveals Severely dilated with large anterior apical akinesis estimate ejection fraction 20-25% The left ventricular end-diastolic pressure 10 to 15 mmHg IMPRESSION Patent LAD with moderate mid and distal disease which is best managed medically Mild nonflow them disease through the dominant circumflex artery Mild to moderate disease in the small nondominant right coronary Severely reduced ejection fraction with left ventricular dilatation and large regional wall motion abnormality Normal LVEDP PLAN 1. Continue medical management Electronically signed by : Suleiman Gutierrez MD 05/26/2023 15:00:39
[2023-05-26] MEDS: DEFINITY US ECHO CONTRAST 2ML INJ 2 MG IV (11:52)
--- NOTE | 2023-05-26 14:35 | PC.NURSE ---
PT TO [employer] MANAGER
[2023-05-26] MEDS: diphenhydrAMINE 50MG/ML VIAL 50 MG IV (14:56)
[2023-05-26] MEDS: VERAPAMIL 2.5MG/ML 2ML VIAL 2.5 MG IV (14:56)
[2023-05-26] MEDS: NITROGLYCERIN 800MCG/8ML SYR (CATH LAB) 800 MCG IA (14:57)
[2023-05-26] MEDS: 0.9 % SODIUM CHLORIDE 500 ML 25 ML IV (14:57)
[2023-05-26] MEDS: HEPARIN 1,000 UNITS/500ML NS (CATH LAB) 3000 UNIT IV (14:57)
[2023-05-26] MEDS: HEPARIN 1,000 UNITS/ML 10ML VIAL (CATH LAB) 10000 UNIT IV (14:57)
[2023-05-26] MEDS: LIDOCAINE 1% 10ML MDV 20 ML IJ (14:57)
--- NOTE | 2023-05-26 14:57 | EXP.CARD.CON ---
History of Present Illness History of Present Illness Consult date: 05/26/23 Requesting physician: Koby Pérez Consult reason: chest pain Chief complaint: chest pain History of present illness: 63-year-old white male with past medical history of coronary artery disease status post STEMI with stenting in 2018 and heart failure with reduced ejection fraction of 25 to 30% status post AICD presented to hospital on Friday with complaints of chest pressure radiating to left arm prompting him to call EMS for evaluation. Patient reports he did take nitro and got some relief but pain never fully went away. Traditionally patient follows with cardiology at . Patient denies worsening of shortness of air, nausea, vomiting or syncope. Upon arrival to emergency department EKG was negative for acute ischemic changes and serial troponins have been negative. Patient was admitted for unstable angina and for further evaluation per cardiology for chest pain. Morning labs as follow: WBC 5.2, RBC 6.57, hemoglobin 18.6, sodium 136, potassium 4.4, creatinine 1.2. [facility] Disclaimer: The information contained in this section may have been updated after the patient was seen, as this information can be updated by other users. Medical History CAD (coronary artery disease) Cardiac pacemaker in situ HFrEF (heart failure with reduced ejection fraction) Social History Smoking Status: Never smoker alcohol intake: never current occupational status: employed Travel in the last 8 weeks: None Review of Systems Review of Systems Review of systems:: pertinent systems reviewed and negative unless documented below Constitutional Constitutional: Reports system reviewed and no additional complaints, except as documented *Cardiovascular Cardiovascular: Reports chest pain *Respiratory Respiratory: Reports system reviewed and no additional complaints, except as documented *Gastrointestinal Gastrointestinal: Reports system reviewed and no additional complaints, except as documented *Neurologic Neurologic: Reports system reviewed and no additional complaints, except as documented and Denies confusion Psychiatric Psychiatric: Reports system reviewed and no additional complaints, except as documented and Denies confusion Exam Data for Last 24 hours Vital signs and Labs for Last 24 Hours: Temp Pulse Resp BP Pulse Ox O2 Del Method 98.2 F 54 L 21 100/62 L 93 L Room Air 05/26/23 12:00 05/26/23 12:05/26/23 12:00 05/26/23 12:00 05/26/23 12:00 05/26/23 13:00 Laboratory Results - last 24 hr 05/25/23 15:35: Troponin I < 0.01 05/26/23 07:16: WBC 5.2, RBC 6.57 H, Hgb 18.6 H, Hct 54.9 H, MCV 83.6, MCH 28.3, MCHC 33.8, RDW 14.2, Plt Count 121 L, MPV 7.9, Neut % (Auto) 68.7, Lymph % (Auto) 18.1, [place] % (Auto) 8.9, Eos % (Auto) 3.7, Baso % (Auto) 0.7, Neut # (Auto) 3.6, Lymph # (Auto) 0.9, [place] # (Auto) 0.5, Eos # (Auto) 0.2, Baso # (Auto) 0.0, Sodium 136, Potassium 4.4, Chloride 104, Carbon Dioxide 28, Anion Gap 8.4, BUN 17, Creatinine 1.20, Estimated Creat Clear 67, Estimated GFR 61, Est GFR ( Amer) 74, Glucose 97, Calcium 9.0, Magnesium 2.2, Total Bilirubin 1.5 H, AST 32, ALT 31, Alkaline Phosphatase 70, Total Protein 6.8, Albumin 4.0, Globulin 2.8, Albumin/Globulin Ratio 1.4 I & O for Last 24 hours: Intake & Output 05/23/23 05/24/23 05/25/23 05/26/23 23:59 23:59 23:59 23:59 Intake Total 120 / 240 120 / 120 Output Total 0 / 0 0 / 0 Balance 120 / 240 120 / 120 Weight 170 lb 3.27 oz 170 lb 3.326 oz Constitutional Constitutional: no acute distress *Routine Respiratory Exam Respiratory: Present CTA bilaterally and symmetric chest movement *Routine Cardiovascular Exam Cardiovascular: Present RRR, Normal S1 and Normal S2 *Routine Abdominal Exam Abdominal: Present soft and normoactive bowel sounds; Absent tenderness *Routine Extremities Exam Extremities: Present full ROM and normal capillary refill; Absent edema *Routine Skin Exam Skin: Present intact, dry and warm Detailed Neck Exam: Thyroids Thyroid: Absent bruit Meds Home Medications and Allergies Home Medications Medication Instructions Recorded Confirmed Type aspirin 81 mg tablet,delayed 81 mg PO DAILY 05/25/23 05/25/23 History release atorvastatin 80 mg tablet 80 mg PO DAILY Cholesterol 05/25/23 05/25/23 History clopidogrel 75 mg tablet 75 mg PO DAILY Blood Thinner 05/25/23 05/25/23 History empagliflozin 10 mg tablet 10 mg PO DAILY Heart Disease 05/25/23 05/25/23 History (Jardiance) gabapentin 300 mg capsule 300 mg PO TID NERVE PAIN 05/25/23 05/25/23 History guaifenesin 600 mg tablet, 600 - 1,200 mg PO BIDP PRN Cough 05/25/23 05/25/23 History extended release 12 hr (Mucinex) metoprolol succinate 100 mg 100 mg PO DAILY High Blood Pressure 05/25/23 05/25/23 History tablet,extended release 24 hr sacubitril 97 mg-valsartan 103 mg 1 tab PO BID High Blood Pressure 05/25/23 05/25/23 History tablet (Entresto) spironolactone 25 mg tablet 25 mg PO DAILY Fluid 05/25/23 05/25/23 History New Prescriptions to Start Prescriptions: Allergies Allergy/AdvReac Type Severity Reaction Status Date / Time No Known Allergies Allergy Verified 01/26/22 15:12 Assessment and Plan *Assessment and plan (1) CAD (coronary artery disease): Status: Acute Category: Medical Code(s): I25.10 - Atherosclerotic heart disease of [place] coronary artery without angina pectoris (2) HFrEF (heart failure with reduced ejection fraction): Status: Acute Category: Medical Code(s): I50.20 - Unspecified systolic (congestive) heart failure (3) Cardiac pacemaker in situ: Status: Acute Category: Medical Code(s): Z95.0 - Presence of cardiac pacemaker (4) Unstable angina: Status: Acute Category: Medical Code(s): I20.0 - Unstable angina Plan CAD Unstable angina CCS3 -S/p stemi 2018 -serial trops negative -EKG is negative for acute ischemic changes -Will proceed with [facility] today for further evaluation. Discussed risks vs. benefits with patient, he is agreeable. -Continue aspirin 81 mg daily, atorvastatin 80 mg daily, Plavix 75 mg daily, metoprolol 100 mg daily Chronic HFrEF s/p AICD Ischemic cardiomyopathy -no current signs of volume overload noted -Continue Entresto 97/103 mg p.o. twice daily, Jardiance 10 mg daily, Aldactone 25 mg daily, metoprolol 100 mg daily -Preliminary echo shows an estimated EF of 25% official read is pending CV summary 05/26/2023: Will proceed with left heart catheterization for unstable angina. Official echocardiogram is pending.
[2023-05-26] MEDS: MIDAZOLAM HCL 1MG/1ML 5ML VIAL 1 MG IV (14:58)
[2023-05-26] MEDS: FENTANYL 100MCG/2ML VIAL 50 MCG IV (14:58)
--- NOTE | 2023-05-26 15:25 | P.DS_ITS ---
General Admission date:: 05/25/23 Discharge date: 05/26/23 HPI HPI HPI: Mr. Rg is a 63-year-old male with extensive cardiac history. Previous [place] in 2018, subsequently developed heart failure with reduced ejection fraction approximately 25%. Has had a pacemaker/defibrillator in place since. Generally follows at with cardiology. States that he had an increased episode of chest pressure last night that got better with nitro. Shortness of breath is stable but chronic. Denies any nausea or vomiting. No syncope. Chest pressure caused him to come to the ER for evaluation. Initial troponin negative. No new ischemic changes on EKG. Given significant cardiac history and high risk patient, cardiology was contacted. Recommend admission for further management. Medicine consulted for admission. On evaluation, patient reports that he was more tired this morning than usual. is at bedside with him. No chest pain at this time. Stable on room air. Hospital Course Hospital Course Hospital Course: 63-year-old male with extensive cardiac history, [place] in 2018. Presents with unstable angina at rest. Discussed case with ER physician, requests for serial troponins, monitoring on telemetry, and cardiology consult in the morning. Medicine agreed to admit for further management. Heart cath performed. Continue medical management. Stable to discharge. Problems addressed as follows: Unstable angina CAD Heart failure with reduced ejection fraction Hypertension -Presents with onset and angina initial troponin negative. Cardiology consulted, evaluated patient, recommended left heart cath to evaluate for ischemic disease. Patient taken for left heart cath with no flow-limiting lesions appreciated. Noted to have patent LAD with moderate mid and distal disease, best managed medically. Mild nonflow them disease through the dominant circumflex artery. Mild to moderate disease in the small nondominant right coronary. Severely reduced ejection fraction with left ventricular dilatation and large regional wall motion abnormality. Normal LVEDP. Continue aspirin 81 mg daily, Lipitor 80 mg nightly, Plavix 75 mg daily Jardiance 10 mg daily, metoprolol 100 mg daily, Entresto 97/103 mg twice daily, spironolactone 25 mg daily. Appears euvolemic during admission. Stable for discharge home. Further medical management as an outpatient. -EKG reviewed, no acute ischemic changes on personal review -Preliminary echo shows an estimated EF of 25% official read is pending Spent 30 minutes in discharge counseling, documentation, chart review, and direct care with patient. Exam Data for Last 24 hours Vital signs and Labs for Last 24 Hours: Temp Pulse Resp BP Pulse Ox O2 Del Method 98.2 F 67 19 109/60 L 95 Room Air 05/26/23 12:00 05/26/23 15:15 05/26/23 15:15 05/26/23 15:15 05/26/23 15:15 05/26/23 13:00 Laboratory Results - last 24 hr 05/25/23 15:35: Troponin I < 0.01 05/26/23 07:16: WBC 5.2, RBC 6.57 H, Hgb 18.6 H, Hct 54.9 H, MCV 83.6, MCH 28.3, MCHC 33.8, RDW 14.2, Plt Count 121 L, MPV 7.9, Neut % (Auto) 68.7, Lymph % (Auto) 18.1, [place] % (Auto) 8.9, Eos % (Auto) 3.7, Baso % (Auto) 0.7, Neut # (Auto) 3.6, Lymph # (Auto) 0.9, [place] # (Auto) 0.5, Eos # (Auto) 0.2, Baso # (Auto) 0.0, Sodium 136, Potassium 4.4, Chloride 104, Carbon Dioxide 28, Anion Gap 8.4, BUN 17, Creatinine 1.20, Estimated Creat Clear 67, Estimated GFR 61, Est GFR ( Amer) 74, Glucose 97, Calcium 9.0, Magnesium 2.2, Total Bilirubin 1.5 H, AST 32, ALT 31, Alkaline Phosphatase 70, Total Protein 6.8, Albumin 4.0, Globulin 2.8, Albumin/Globulin Ratio 1.4 I & O for Last 24 hours: Intake & Output 05/23/23 05/24/23 05/25/23 05/26/23 23:59 23:59 23:59 23:59 Intake Total 120 / 240 120 / 120 Output Total 0 / 0 0 / 0 Balance 120 / 240 120 / 120 Weight 77.203 kg 77.205 kg Constitutional Constitutional: no acute distress, average body habitus and cooperative *Routine HEENT Exam Head: Present normocephalic Eye: Present EOMI and PERRL ENT: Present mucous membranes moist *Routine Neck Exam Neck: Present supple; Absent lymphadenopathy Routine Chest/Breast/Axilla Exam Chest wall: Present pacemaker *Routine Respiratory Exam Respiratory: Present CTA bilaterally; Absent rhonchi, wheezes or crackles *Routine Cardiovascular Exam Cardiovascular: Present RRR and Normal S1 *Routine Abdominal Exam Abdominal: Present soft and normoactive bowel sounds; Absent tenderness *Routine Extremities Exam Extremities: Absent cyanosis, clubbing or edema *Routine Skin Exam Skin: Present warm; Absent rash *Routine Neurological Exam Neurological: Present alert, oriented X3 and moving all extremities; Absent altered mental status Results Data Completed and Pending Labs on day of discharge: Labs from last 24 hours 05/26/23 05/25/23 07:16 15:35 WBC 5.2 RBC 6.57 H Hgb 18.6 H Hct 54.9 H MCV 83.6 MCH 28.3 MCHC 33.8 RDW 14.2 Plt Count 121 L MPV 7.9 Neut % (Auto) 68.7 Lymph % (Auto) 18.1 [place] % (Auto) 8.9 Eos % (Auto) 3.7 Baso % (Auto) 0.7 Neut # (Auto) 3.6 Lymph # (Auto) 0.9 [place] # (Auto) 0.5 Eos # (Auto) 0.2 Baso # (Auto) 0.0 Sodium 136 Potassium 4.4 Chloride 104 Carbon Dioxide 28 Anion Gap 8.4 BUN 17 Creatinine 1.20 Estimated Creat Clear 67 Estimated GFR 61 Est GFR ( Amer) 74 Glucose 97 Calcium 9.0 Magnesium 2.2 Total Bilirubin 1.5 H AST 32 ALT 31 Alkaline Phosphatase 70 Troponin I < 0.01 Total Protein 6.8 Albumin 4.0 Globulin 2.8 Albumin/Globulin Ratio 1.4 DS: Diagnosis Discharge Diagnosis (1) CAD (coronary artery disease): Status: Acute Code(s): I25.10 - Atherosclerotic heart disease of [place] coronary artery without angina pectoris (2) HFrEF (heart failure with reduced ejection fraction): Status: Acute Code(s): I50.20 - Unspecified systolic (congestive) heart failure (3) Cardiac pacemaker in situ: Status: Acute Code(s): Z95.0 - Presence of cardiac pacemaker (4) Unstable angina: Status: Acute Code(s): I20.0 - Unstable angina Meds Home Medications and Allergies Home Medications Medication Instructions Recorded Confirmed Type aspirin 81 mg tablet,delayed 81 mg PO DAILY 05/25/23 05/25/23 History release atorvastatin 80 mg tablet 80 mg PO DAILY Cholesterol 05/25/23 05/25/23 History clopidogrel 75 mg tablet 75 mg PO DAILY Blood Thinner 05/25/23 05/25/23 History empagliflozin 10 mg tablet 10 mg PO DAILY Heart Disease 05/25/23 05/25/23 History (Jardiance) gabapentin 300 mg capsule 300 mg PO TID NERVE PAIN 05/25/23 05/25/23 History guaifenesin 600 mg tablet, 600 - 1,200 mg PO BIDP PRN Cough 05/25/23 05/25/23 History extended release 12 hr (Mucinex) metoprolol succinate 100 mg 100 mg PO DAILY High Blood Pressure 05/25/23 05/25/23 History tablet,extended release 24 hr sacubitril 97 mg-valsartan 103 mg 1 tab PO BID High Blood Pressure 05/25/23 05/25/23 History tablet (Entresto) spironolactone 25 mg tablet 25 mg PO DAILY Fluid 05/25/23 05/25/23 History New Prescriptions to Start Prescriptions: Allergies Allergy/AdvReac Type Severity Reaction Status Date / Time No Known Allergies Allergy Verified 01/26/22 15:12 Discharge Plan Disposition Patient Disposition: Home, Self-Care Condition: Good Follow up Plan Follow up with: Suleiman Gutierrez MD [Staff Physician] - 06/02/23 9:15 am Kumar Price MD [Primary Care Provider] - 06/02/23 11:00 am Prescriptions/Medication Reconciliation: Continued atorvastatin 80 mg tablet 80 mg PO DAILY Patient Comments: TAKE 1 TABLET BY MOUTH EVERY DAY FOR 30 DAYS metoprolol succinate 100 mg tablet extended release 24 hr 100 mg PO DAILY Patient Comments: TAKE 1 TABLET BY MOUTH EVERY DAY DO NOT CRUSH OR CHEW clopidogrel 75 mg tablet 75 mg PO DAILY Patient Comments: TAKE 1 TABLET BY MOUTH EVERY DAY spironolactone 25 mg tablet 25 mg PO DAILY Patient Comments: TAKE 1 TABLET BY MOUTH EVERY DAY gabapentin 300 mg capsule 300 mg PO TID Patient Comments: TAKE 1 CAPSULE BY MOUTH 4 TIMES A DAY. Jardiance 10 mg tablet 10 mg PO DAILY Patient Comments: TAKE 1 TABLET BY MOUTH EVERY DAY Entresto 97-103 mg tablet 1 tab PO BID Patient Comments: TAKE 1 TABLET BY MOUTH TWICE A DAY FOR 90 DAYS guaifenesin [Mucinex] 600 mg Tablet Extended Release 12hr 600 - 1,200 mg PO BIDP PRN (Reason: Cough) aspirin 81 mg Tablet,Delayed Release (Dr/Ec) 81 mg PO DAILY Problem Reconciliation Problems Reviewed?: Yes Patient Discharge Instructions ACTIVITY: Continue current activity DIET: continue same diet Patient Instructions: DI for Heart Failure, DI for Cardiac Catheterization, DI for Surgical Site Infection, DI for Chest Pain Providers Primary Care Provider: Kumar Price Admit Provider: Koby Pérez Attending Provider: Koby Pérez
[2023-05-26] MEDS: IOPAMIDOL-370 (76%);100ML BOTTLE 60 ML IV (15:26)
--- NOTE | 2023-05-26 18:22 | PC.NURSE ---
DISCHARGE INSTRUCTIONS WENT OVER WITH PT AND , WAITING TO GET RADIAL BAND OFF.
--- NOTE | 2023-05-27 15:35 | CARE MANAGER ---
Called and spoke with patient regarding recent discharge. He states that he is doing well and aware of his f/u appts. He voiced no concerns at time of call.
== END 2023-05-26 19:32 | disposition home or self-care (01) ==
LOC: ER 09:17 → 2ND 13:52
PROVIDERS: Internal Medicine; Admitting Provider Internal Medicine Adolescent Medicine; Emergency Provider Student in an Organized Health Care Education/Training Program; PCP Internal Medicine Adolescent Medicine; Visit Provider Internal Medicine Adolescent Medicine
DX: I25.110 Atherosclerotic heart disease of native coronary artery with unstable angina pectoris (principal); I25.10 Atherosclerotic heart disease of native coronary artery without angina pectoris; I25.2 Old myocardial infarction; I50.20 Unspecified systolic (congestive) heart failure; Z95.0 Presence of cardiac pacemaker; I11.0 Hypertensive heart disease with heart failure; I25.5 Ischemic cardiomyopathy
CPT/HCPCS: 36415; 71045; 80053; 83690; 83735; 84484; 85025; 93005; 93306; 93458; 99152; 99291; C1725; C1769; G0378; J1644; Q9957; Q9967

== ENCOUNTER 2023-06-17 09:39 | Outpatient (CLI) | payer MEDICARE, BC, SELFPAY ==
[2023-06-17 10:01] LABS: Basophils % 0.7 % (0.1-2.0); Eosinophils # 0.2 K/mm3 (0.0-0.4); Eosinophils % 3.5 % (0.1-12.0); Hematocrit 55.7 % (42.0-52.0); Hemoglobin 17.9 g/dL (14.1-18.0); Lymphocytes # 0.7 K/mm3 (0.7-4.5); Lymphocytes % 12.5 % (10-50); Mean Corpuscular HGB Conc 32.1 g/dL (31.8-35.4); Mean Corpuscular Hemoglobin 28.7 pg (27.0-31.2); Mean Corpuscular Volume 89.4 fl (80-94); Mean Platelet Volume 7.9 fl (7.4-10.4); Monocytes # 0.4 K/mm3 (0.1-1.0); Monocytes % 6.5 % (1.7-9.3); Neutrophils # 4.4 K/mm3 (1.8-7.8); Neutrophils % 76.9 % (37.0-80.0); Platelet Count 133 K/mm3 (142-424); Red Blood Count 6.23 M/mm3 (4.60-6.20); Red Cell Distribution Width 14.4 % (11.5-17.5); White Blood Count 5.7 K/mm3 (4.8-10.8)
== END 2023-06-17 23:59 ==
PROVIDERS: PCP Internal Medicine Adolescent Medicine; Visit Provider Internal Medicine Medical Oncology
DX: D45 Polycythemia vera (principal)
CPT/HCPCS: 36415; 85025

== ENCOUNTER 2023-10-23 08:57 | Emergency (ER) | payer MEDICARE, BC, SELFPAY ==
[2023-10-23 09:10] VITALS: BP 118/84; PULSE 77; RESP 20; TEMP 37; O2SAT 98; BMI 27.1
--- NOTE | 2023-10-23 09:30 | EXP.UTC ---
Discharge Plan Disposition Patient Disposition: Home, Self-Care Condition: Good Prescriptions Prescriptions: New amoxicillin-pot clavulanate 875-125 mg Tablet 1 tab PO Q12H Qty: 20 0RF guaifenesin [Mucinex] 600 mg tablet extended release 12hr 1,200 mg PO BID PRN (Reason: cough) Qty: 20 0RF No Action atorvastatin 80 mg tablet 80 mg PO DAILY Patient Comments: TAKE 1 TABLET BY MOUTH EVERY DAY FOR 30 DAYS metoprolol succinate 100 mg tablet extended release 24 hr 100 mg PO DAILY Patient Comments: TAKE 1 TABLET BY MOUTH EVERY DAY DO NOT CRUSH OR CHEW clopidogrel 75 mg tablet 75 mg PO DAILY Patient Comments: TAKE 1 TABLET BY MOUTH EVERY DAY spironolactone 25 mg tablet 25 mg PO DAILY Patient Comments: TAKE 1 TABLET BY MOUTH EVERY DAY gabapentin 300 mg capsule 300 mg PO TID Patient Comments: TAKE 1 CAPSULE BY MOUTH 4 TIMES A DAY. Jardiance 10 mg tablet 10 mg PO DAILY Patient Comments: TAKE 1 TABLET BY MOUTH EVERY DAY Entresto 97-103 mg tablet 1 tab PO BID Patient Comments: TAKE 1 TABLET BY MOUTH TWICE A DAY FOR 90 DAYS guaifenesin [Mucinex] 600 mg Tablet Extended Release 12hr 600 - 1,200 mg PO BIDP PRN (Reason: Cough) aspirin 81 mg Tablet,Delayed Release (Dr/Ec) 81 mg PO DAILY Referrals Follow up/Referrals: Kumar Price MD [Primary Care Provider] - See instructions Activity Restrictions/Add. Instructions Additional Instructions/Restrictions: Start antibiotic today. Be sure to complete entire prescription even if feeling better Monitor temp. Tylenol every 4 hours as needed and / or ibuprofen every 6 hours as needed ( As long as your primary care physician has told you that it ok to take both. For fever/aches/pains ER if no less than 101 despite Tylenol or Motrin Humidifier/vaporizer or hot steamy shower Mucinex during the day for your cough and cough suppressant only at night. Be sure to drink lots of water. *Tessalon Perles will not cause drowsiness but use at bedtime to help stop cough so that you may get some rest. Follow up IMMEDIATELY for new or worsening of symptoms OR no noticeable improvement over the next 48-72 hours. 911 immediately for any life threatening symptoms such as chest pain or difficulty breathing Clinical Impressions Clinical Impression: Sinusitis Qualifiers: Sinusitis location: unspecified location Chronicity: unspecified Qualified Code(s): J32.9 - Chronic sinusitis, unspecified Instructions Patient Instructions: Sinusitis, DI for Sinusitis Discharge ED Provider: Pamela Ansari [facility] – [place], [place] HPI General Stated complaint: headache, congestion Mode of Arrival: Ambulatory Source of Information: Patient Limitations: No Limitations Time Seen by Provider: 10/23/23 09:30 Description of Symptoms (Recalled from Triage Doc. by RN): PATIENT C/O SINUS PRESSURE, CONGESTION, AND COUGH WITH PHLEGM THAT STARTED FRIDAY HEENT Symptoms (Recalled from RN notes): Yes Resp Symptoms (Recalled from RN notes): Yes Skin Symptoms (Recalled from RN notes): No MS Symptoms (Recalled from RN notes): No Functional Status (Recalled from RN notes): WNL History of Present Illness Provider Complaint: Patient states that he has been having sinus pain and pressure, cough and drainage in the back of his throat that has got worse over the last couple of days States today when he wasnt feeling any better he came in Related Data Home Medications Medication Instructions Recorded Confirmed aspirin 81 mg tablet,delayed 81 mg PO DAILY 05/25/23 06/17/23 release atorvastatin 80 mg tablet 80 mg PO DAILY Cholesterol 05/25/23 06/17/23 clopidogrel 75 mg tablet 75 mg PO DAILY Blood Thinner 05/25/23 06/17/23 empagliflozin 10 mg tablet 10 mg PO DAILY Heart Disease 05/25/23 06/17/23 (Jardiance) gabapentin 300 mg capsule 300 mg PO TID NERVE PAIN 05/25/23 06/17/23 guaifenesin 600 mg tablet, 600 - 1,200 mg PO BIDP PRN Cough 05/25/23 06/17/23 extended release 12 hr (Mucinex) metoprolol succinate 100 mg 100 mg PO DAILY High Blood Pressure 05/25/23 06/17/23 tablet,extended release 24 hr sacubitril 97 mg-valsartan 103 mg 1 tab PO BID High Blood Pressure 05/25/23 06/17/23 tablet (Entresto) spironolactone 25 mg tablet 25 mg PO DAILY Fluid 05/25/23 06/17/23 Previous Rx's Medication Instructions Recorded amoxicillin 875 mg-potassium 1 tab PO Q12H #20 tabs 10/23/23 clavulanate 125 mg tablet guaifenesin 600 mg tablet, 1,200 mg (2 x 600 mg) PO BID PRN 10/23/23 extended release 12 hr (Mucinex) cough #20 tabs Allergies Allergy/AdvReac Type Severity Reaction Status Date / Time nut - unspecified Allergy Verified 10/23/23 09:26 Worker's Comp Is this a Worker's Comp case?: No [facility] Disclaimer: The information contained in this section may have been updated after the patient was seen, as this information can be updated by other users. Medical History (Updated 10/23/23 @ 09:39 by Pamela Ansari APRN) Multiple sclerosis Hypertension Cardiac pacemaker in situ HFrEF (heart failure with reduced ejection fraction) CAD (coronary artery disease) Social History Smoking Status: Never smoker alcohol intake: never current occupational status: employed Travel in the last 8 weeks: None ROS Obtained: Yes All systems reviewed & no additional complaints except as documented and Yes Systems reviewed as appropriate & no additional complaints except as documented Constitutional Constitutional: Reports system reviewed and no additional complaints, except as documented and Reports as per HPI ENT Ears, Nose, Mouth, and Throat: Reports system reviewed and no additional complaints, except as documented and Reports as per HPI Cardiovascular Cardiovascular: Reports system reviewed and no additional complaints, except as documented and Reports as per HPI Respiratory Respiratory: Reports system reviewed and no additional complaints, except as documented, Reports as per HPI and Reports cough Gastrointestinal Gastrointestingal: Reports system reviewed and no additional complaints, except as documented and as per HPI Physical Exam General General appearance: alert and in no apparent distress ENT ENT exam: Present mucous membranes moist Expanded ENT Exam Nose exam: Present sinus tenderness Throat exam: Present other (PND noted) Respiratory Respiratory exam: Present normal lung sounds bilaterally; Absent respiratory distress or wheezes Cardiovascular Cardiovascular exam: Present regular rate, normal rhythm and normal heart sounds Neurological Exam Neurological exam: Present alert, oriented X3 and normal gait Medical Decision Making Jaren Inquiry Pt receiving controlled substance: No Jaren was queried for this patient: No Vital Signs: 10/23/23 09:10 Temperature 98.6 F Temperature Source Oral Pulse Rate [Left Brachial] 77 Respiratory Rate 20 Blood Pressure [Left Arm] 118/84 Blood Pressure Mean [Left Arm] 95 Blood Pressure Source [Left Arm] Automatic Cuff Blood Pressure Position [Left Arm] Sitting 02 Sat by Pulse Oximetry 98 Oxygen Delivery Method Room Air
[2023-10-23 09:55] VITALS: BP 118/84; PULSE 77; RESP 20; TEMP 37; O2SAT 98
== END 2023-10-23 09:58 | disposition home or self-care (01) ==
PROVIDERS: Emergency Provider Nurse Practitioner; PCP Internal Medicine Adolescent Medicine
DX: J01.90 Acute sinusitis, unspecified (principal); R51.9 Headache, unspecified; R05.9 Cough, unspecified; R09.82 Postnasal drip
CPT/HCPCS: 99212; 99214; G0463

== ENCOUNTER 2024-03-01 13:21 | Outpatient (RCR) | payer MEDICARE, BC, SELFPAY | END 2024-05-14 09:30 | disposition home or self-care (01) | LOC: CR 13:21 | PROVIDERS: Visit Provider Nurse Practitioner Family | DX: I11.0 Hypertensive heart disease with heart failure (principal); I50.22 Chronic systolic (congestive) heart failure; I25.10 Atherosclerotic heart disease of native coronary artery without angina pectoris; G60.9 Hereditary and idiopathic neuropathy, unspecified; Z95.810 Presence of automatic (implantable) cardiac defibrillator | CPT/HCPCS: 93798 ==

== ENCOUNTER 2024-09-05 11:50 | Emergency (ER) | payer MEDICARE, BC, SELFPAY ==
[2024-09-05] VITALS (10 sets, daily range): BP systolic 92–125; BP diastolic 65–87; PULSE 60–64; RESP 11–18; TEMP 36.6–36.9; O2SAT 94–97; BMI 25.8
--- NOTE | 2024-09-05 12:04 | ECG_ITS ---
APPROVED REPORT Exam: Resting ECG HR:60 bpm ECG Measurements Heart Rate 60 AXES WA 138 P 182 QRSd 193 QRS 238 QT 491 T 103 QTc 491 Conclusion ELECTRONIC ATRIAL PACEMAKER ELECTRONIC VENTRICULAR PACEMAKER No STEMI Electronically signed by : JIE LAWTON, 09/07/2024 19:59:52
--- NOTE | 2024-09-05 12:07 | ED_ITS ---
<Statement entered by Nancy Pedraza DO - 09/06/24 15:53> I was consulted by the KAYLEY, and we discussed the complexity of the problems being addressed. I approved the treatment and management plan for this patient's care in the emergency department, thus performing a substantive portion of the medical decision making. Nancy Pedraza DO Discharge Plan Disposition Patient Disposition: Home, Self-Care Condition: Good Prescriptions Prescriptions: No Action atorvastatin 80 mg tablet 80 mg PO DAILY Patient Comments: TAKE 1 TABLET BY MOUTH EVERY DAY FOR 30 DAYS metoprolol succinate 100 mg tablet extended release 24 hr 100 mg PO DAILY Patient Comments: TAKE 1 TABLET BY MOUTH EVERY DAY DO NOT CRUSH OR CHEW clopidogrel 75 mg tablet 75 mg PO DAILY Patient Comments: TAKE 1 TABLET BY MOUTH EVERY DAY spironolactone 25 mg tablet 25 mg PO DAILY Patient Comments: TAKE 1 TABLET BY MOUTH EVERY DAY gabapentin 300 mg capsule 300 mg PO TID Patient Comments: TAKE 1 CAPSULE BY MOUTH 4 TIMES A DAY. Jardiance 10 mg tablet 10 mg PO DAILY Patient Comments: TAKE 1 TABLET BY MOUTH EVERY DAY Entresto 97-103 mg tablet 1 tab PO BID Patient Comments: TAKE 1 TABLET BY MOUTH TWICE A DAY FOR 90 DAYS guaifenesin [Mucinex] 600 mg Tablet Extended Release 12hr 600 - 1,200 mg PO BIDP PRN (Reason: Cough) aspirin 81 mg Tablet,Delayed Release (Dr/Ec) 81 mg PO DAILY amoxicillin-pot clavulanate 875-125 mg Tablet 1 tab PO Q12H Qty: 20 0RF guaifenesin [Mucinex] 600 mg tablet extended release 12hr 1,200 mg PO BID PRN (Reason: cough) Qty: 20 0RF Referrals Follow up/Referrals: Kumar Price MD [Primary Care Provider] - See instructions Activity Restrictions/Add. Instructions Additional Instructions/Restrictions: Recommend that you follow-up with first available appointment with your group sales coordinator. Please call on Friday to make that appointment. If you have any persistent new or worsening signs or symptoms follow-up with your PCP return to the ER as needed. Clinical Impressions Clinical Impression: Chest pain Qualifiers: Chest pain type: unspecified Qualified Code(s): R07.9 - Chest pain, unspecified Print Language Print Language: Korean Discharge ED Provider: Nancy Pedraza General Adult HPI <ANDREY Garcia - Last Filed: 09/05/24 16:32> General Chief complaint: PAIN Stated complaint: Was told to come in if defibrillator went off Time Seen by Provider: 09/05/24 12:07 History of Present Illness HPI narrative: Patient presents for evaluation of chest pain. Patient was in [facility] and felt a sudden sharp pain in his left chest rating down his left arm and simultaneously caused him to kick his left leg. Patient has a history of biventricular pacemaker and AICD. It is never fired before. He was told if it did to come to the ER for evaluation. He follows with cardiology at the [facility]. He currently denies chest pain shortness of breath fever chills hemoptysis hematochezia melena nausea vomit diarrhea. Related Data Home Medications ?Medication ?Instructions ?Recorded ?Confirmed aspirin 81 mg tablet,delayed 81 mg PO DAILY 05/25/23 06/17/23 release atorvastatin 80 mg tablet 80 mg PO DAILY Cholesterol 05/25/23 06/17/23 clopidogrel 75 mg tablet 75 mg PO DAILY Blood Thinner 05/25/23 06/17/23 empagliflozin 10 mg tablet 10 mg PO DAILY Heart Disease 05/25/23 06/17/23 (Jardiance) gabapentin 300 mg capsule 300 mg PO TID NERVE PAIN 05/25/23 06/17/23 guaifenesin 600 mg tablet, 600 - 1,200 mg PO BIDP PRN Cough 05/25/23 06/17/23 extended release 12 hr (Mucinex) metoprolol succinate 100 mg 100 mg PO DAILY High Blood Pressure 05/25/23 06/17/23 tablet,extended release 24 hr sacubitril 97 mg-valsartan 103 mg 1 tab PO BID High Blood Pressure 05/25/23 06/17/23 tablet (Entresto) spironolactone 25 mg tablet 25 mg PO DAILY Fluid 05/25/23 06/17/23 Previous Rx's ?Medication ?Instructions ?Recorded amoxicillin 875 mg-potassium 1 tab PO Q12H #20 tabs 10/23/23 clavulanate 125 mg tablet guaifenesin 600 mg tablet, 1,200 mg (2 x 600 mg) PO BID PRN 10/23/23 extended release 12 hr (Mucinex) cough #20 tabs Allergies Allergy/AdvReac Type Severity Reaction Status Date / Time nut - unspecified Allergy Verified 10/23/23 09:26 [facility] <ANDREY Garcia - Last Filed: 09/05/24 16:32> [facility] Disclaimer: The information contained in this section may have been updated after the patient was seen, as this information can be updated by other users. Medical History (Updated 09/05/24 @ 15:33 by ANDREY Garcia) Multiple sclerosis Hypertension Cardiac pacemaker in situ HFrEF (heart failure with reduced ejection fraction) CAD (coronary artery disease) Social History Smoking Status: Never smoker alcohol intake: never current occupational status: employed Travel in the last 8 weeks?: None Have you lived/traveled outside [place] in past 30 days?: No Contact w/someone who lives/traveled outside US past 30 days?: No Exposure to someone with infectious disease in past 14 days?: No Do you have a fever (greater than 100.4 F or 38 C)?: No Have you tested positive for COVID-19?: No Exposed to someone with COVID-19 in past 14 days?: No Do you have a sore throat?: No Do you have a cough?: No Do you have any weakness?: No Do you have any diarrhea?: No Are you experiencing any unusual bleeding?: No Do you have any muscle aches/pain?: No Do you have any abdominal pain?: No Are you experiencing loss of taste or smell?: No Other Medical History Have you received the Flu Vaccine for this season: No Have you received the Pneumonia Vaccine: Yes <ANDREY Garcia - Last Filed: 09/05/24 16:32> ROS Obtained: Yes Systems reviewed as appropriate & no additional complaints except as documented Physical Exam <ANDREY Garcia - Last Filed: 09/05/24 16:32> General General appearance: alert and in no apparent distress Respiratory Respiratory exam: Present normal lung sounds bilaterally Cardiovascular Cardiovascular exam: Present Pacemaker w/paced rhythm Neurological Exam Neurological exam: Present alert and oriented X3 Medical Decision Making <ANDREY Garcia - Last Filed: 09/05/24 16:32> Medical Records Medical records reviewed: Yes I reviewed the patient's medical records. Screening: Per USPSTF and CDC recommendations, given the prevalence of disease in our region, it is our hospital?s policy to screen for HIV and viral Hepatitis for all patients aged 18 and over and those with ongoing risk factors. Jaren Inquiry Pt receiving controlled substance: No Vital Signs: 09/05/24 12:21 09/05/24 12:30 09/05/24 13:00 Temperature 98.4 F Temperature Source Oral Pulse Rate 64 60 Pulse Rate [Left Radial] 60 Respiratory Rate 13 14 11 L Blood Pressure 111/81 118/73 Blood Pressure [Right Arm] 125/87 Blood Pressure Mean [Right Arm] 99 02 Sat by Pulse Oximetry 97 97 96 Oxygen Delivery Method Room Air 09/05/24 13:30 09/05/24 14:00 09/05/24 14:30 Temperature Temperature Source Pulse Rate 60 60 60 Pulse Rate [Left Radial] Respiratory Rate Blood Pressure 104/70 L 94/65 L 92/69 L Blood Pressure [Right Arm] Blood Pressure Mean [Right Arm] 02 Sat by Pulse Oximetry 97 95 95 Oxygen Delivery Method Room Air Room Air Room Air 09/05/24 15:00 09/05/24 15:30 09/05/24 16:00 Temperature Temperature Source Pulse Rate 60 60 60 Pulse Rate [Left Radial] Respiratory Rate Blood Pressure 101/71 L 103/65 L 109/71 L Blood Pressure [Right Arm] Blood Pressure Mean [Right Arm] 02 Sat by Pulse Oximetry 95 96 96 Oxygen Delivery Method Room Air Lab Data Lab results reviewed: Yes I reviewed the patient's lab results. Lab Results 09/05/24 12:08: WBC 5.7, RBC 6.12, Hgb 16.5, Hct 52.3 H, MCV 85.5, MCH 27.0, M CHC 31.5 L, RDW 13.6, Plt Count 141 L, MPV 9.8, Neut % (Auto) 66.7, Lymph % (Auto) 18.8, [place] % (Auto) 8.7, Eos % (Auto) 4.8, Baso % (Auto) 0.5, Neut # (Auto) 3.8, Lymph # (Auto) 1.1, [place] # (Auto) 0.5, Eos # (Auto) 0.3, Baso # (Auto) 0.0, D-Dimer 0.51 H, Sodium 138, Potassium 4.6, Chloride 107, Carbon Dioxide 28, Anion Gap 7.6, BUN 18, Creatinine 1.40 H, Estimated Creat Clear 58, Estimated GFR 51 L, Est GFR ( Amer) 61, Glucose 95, Calcium 9.2, Magnesium 2.3 09/05/24 12:08: Magnesium 2.2, Total Bilirubin 1.1, AST 26, ALT 22, Alkaline Phosphatase 82, Troponin I < 0.01, NT-Pro-B Natriuret Pep 469 H, Total Protein 7.0, Albumin 4.4, Globulin 2.6, Albumin/Globulin Ratio 1.7, HCV Ab GEMA w/Rflx PCR Qn Negative, HIV Ag/Ab Combo Qual Negative 09/05/24 15:18: Troponin I < 0.01 09/05/24 12:08 09/05/24 12:08 Orders (Tests/Meds): ED MEDICATIONS Discontinued Medications Generic Name Dose Route Start Last Admin Trade Name Freq PRN Reason Stop Dose Admin Acetaminophen 1,000 mg 09/05/24 13:04 09/05/24 13:14 Acetaminophen 500mg Tab PO 09/05/24 13:05 1,000 mg ONCE ONE Administration Ondansetron HCl 4 mg 09/05/24 13:04 09/05/24 13:14 Ondansetron 4mg Odt SL 09/05/24 13:05 4 mg ONCE ONE Administration ORDERS Category Date Time Status Chest XR 2 view (NOT portable) [XR chest 2V] Stat Exams 09/05/24 13:04 Completed BNP [NT Pro Brain Natriuretic Pep.] Stat Lab 09/05/24 12:08 Completed CBC w/Auto Diff [Complete Blood Count Auto Diff] Stat Lab 09/05/24 12:08 Completed CMP [Comprehensive Metabolic Panel] Stat Lab 09/05/24 12:08 Completed D-Dimer Stat Lab 09/05/24 12:08 Completed HIV Combo Stat Lab 09/05/24 12:08 Completed Hepatitis C Ab Qual. W/ RFX Stat Lab 09/05/24 12:08 Completed Magnesium Stat Lab 09/05/24 12:08 Completed Magnesium Stat Lab 09/05/24 12:08 Completed Trop I [Troponin I] Stat Lab 09/05/24 12:08 Completed Troponin I Q3H Lab 09/05/24 15:18 Completed Troponin I Q3H Lab 09/05/24 18:15 Ordered HEART Score History (anamnesis): Slightly suspicious ECG: Non-specific disturbance Age: >65 years Risk factors: Atherosclerosis history Troponin: </= normal limit HEART Score: 5 Medical Decision Narrative: In summary patient is a 64-year-old male who presents to the emergency department for evaluation of chest pain with questionable AICD firing. Patient is hemodynamically stable upon arrival, afebrile. Sickle exam is remarkable for a well-nourished well-developed 64-year-old male who is in no acute distress. Breath sounds clear and equal bilaterally to the bases without adventitious sounds, heart rate is S1-S2 without murmurs gallops rubs or thrills with a paced rhythm on the bedside monitor at 60, abdomen soft nontender no rebound or guarding no rigidity. Patient is neurovascularly intact with no focal neurologic deficits.. Differential diagnosis includes AICD firing versus arrhythmia versus ACS etc. Initial workup will be conducted with hematologic labs twelve-lead EKG plain film chest x-ray pacemaker interrogation. Initial interventions include Tylenol Toradol Zofran. Initial workup reviewed by me and his hematologic labs are nonactionable and an undetectable troponin, twelve-lead EKG shows a paced rhythm with no evidence of ACS, my informal to rotation of his plain from chest x-ray shows no acute processes prior to radiology read. Please see final read for formal interpretation. Pacemaker was report was sent by [employer] and there were no events noted in the summary specifically a shock delivered or arrhythmia.. Given this the patient was placed in observation status at 1300. Medical necessity for observational status is serial troponins. The patient was provided serial reevaluations continuous cardiac monitoring and pulse oximetry while awaiting results. Patient's second troponin was also undetectable. Given this we have essentially ruled out any serious or life-threatening condition and other remains diagnostic uncertainty no evidence of a serious or life-threatening condition exists currently. I have recommended the patient follow-up with cardiology soonest available at least on Friday after the holiday to let them know.. Total time in observation was 3 and half hours. <Nancy Pedraza, DO - Last Filed: 09/05/24 13:03> Vital Signs: 09/05/24 12:21 09/05/24 12:30 09/05/24 13:00 Temperature 98.4 F Temperature Source Oral Pulse Rate 64 60 Pulse Rate [Left Radial] 60 Respiratory Rate 13 14 11 L Blood Pressure 111/81 118/73 Blood Pressure [Right Arm] 125/87 Blood Pressure Mean [Right Arm] 99 02 Sat by Pulse Oximetry 97 97 96 Oxygen Delivery Method Room Air 09/05/24 13:30 09/05/24 14:00 09/05/24 14:30 Temperature Temperature Source Pulse Rate 60 60 60 Pulse Rate [Left Radial] Respiratory Rate Blood Pressure 104/70 L 94/65 L 92/69 L Blood Pressure [Right Arm] Blood Pressure Mean [Right Arm] 02 Sat by Pulse Oximetry 97 95 95 Oxygen Delivery Method Room Air Room Air Room Air 09/05/24 15:00 09/05/24 15:30 09/05/24 16:00 Temperature Temperature Source Pulse Rate 60 60 60 Pulse Rate [Left Radial] Respiratory Rate Blood Pressure 101/71 L 103/65 L 109/71 L Blood Pressure [Right Arm] Blood Pressure Mean [Right Arm] 02 Sat by Pulse Oximetry 95 96 96 Oxygen Delivery Method Room Air Lab Data Lab Results 09/05/24 12:08: WBC 5.7, RBC 6.12, Hgb 16.5, Hct 52.3 H, MCV 85.5, MCH 27.0, M CHC 31.5 L, RDW 13.6, Plt Count 141 L, MPV 9.8, Neut % (Auto) 66.7, Lymph % (Auto) 18.8, [place] % (Auto) 8.7, Eos % (Auto) 4.8, Baso % (Auto) 0.5, Neut # (Auto) 3.8, Lymph # (Auto) 1.1, [place] # (Auto) 0.5, Eos # (Auto) 0.3, Baso # (Auto) 0.0, D-Dimer 0.51 H, Sodium 138, Potassium 4.6, Chloride 107, Carbon Dioxide 28, Anion Gap 7.6, BUN 18, Creatinine 1.40 H, Estimated Creat Clear 58, Estimated GFR 51 L, Est GFR ( Amer) 61, Glucose 95, Calcium 9.2, Magnesium 2.3 09/05/24 12:08: Magnesium 2.2, Total Bilirubin 1.1, AST 26, ALT 22, Alkaline Phosphatase 82, Troponin I < 0.01, NT-Pro-B Natriuret Pep 469 H, Total Protein 7.0, Albumin 4.4, Globulin 2.6, Albumin/Globulin Ratio 1.7, HCV Ab GEMA w/Rflx PCR Qn Negative, HIV Ag/Ab Combo Qual Negative 09/05/24 15:18: Troponin I < 0.01 Orders (Tests/Meds): ED MEDICATIONS Discontinued Medications Generic Name Dose Route Start Last Admin Trade Name Freq PRN Reason Stop Dose Admin Acetaminophen 1,000 mg 09/05/24 13:04 09/05/24 13:14 Acetaminophen 500mg Tab PO 09/05/24 13:05 1,000 mg ONCE ONE Administration Ondansetron HCl 4 mg 09/05/24 13:04 09/05/24 13:14 Ondansetron 4mg Odt SL 09/05/24 13:05 4 mg ONCE ONE Administration ORDERS Category Date Time Status Chest XR 2 view (NOT portable) [XR chest 2V] Stat Exams 09/05/24 13:04 Completed BNP [NT Pro Brain Natriuretic Pep.] Stat Lab 09/05/24 12:08 Completed CBC w/Auto Diff [Complete Blood Count Auto Diff] Stat Lab 09/05/24 12:08 Completed CMP [Comprehensive Metabolic Panel] Stat Lab 09/05/24 12:08 Completed D-Dimer Stat Lab 09/05/24 12:08 Completed HIV Combo Stat Lab 09/05/24 12:08 Completed Hepatitis C Ab Qual. W/ RFX Stat Lab 09/05/24 12:08 Completed Magnesium Stat Lab 09/05/24 12:08 Completed Magnesium Stat Lab 09/05/24 12:08 Completed Trop I [Troponin I] Stat Lab 09/05/24 12:08 Completed Troponin I Q3H Lab 09/05/24 15:18 Completed Troponin I Q3H Lab 09/05/24 18:15 Ordered ECG Data Tracing #1: I reviewed this ECG and interpreted as documented below: Paced at a ventricular to 60 bpm. No STEMI per Sgarbossa criteria ECG initial impression date: 09/05/24 ECG initial impression time: 12:08 Critical Care <ANDREY Garcia - Last Filed: 09/05/24 16:32> Critical Care Time Critical Care Time: No
[2024-09-05 12:20] LABS: Basophils % 0.5 % (0.1-2.0); Eosinophils # 0.3 Kmm3 (0.0-0.4); Eosinophils % 4.8 % (0.1-12.0); Hematocrit 52.3 % (42.0-52.0); Hemoglobin 16.5 g/dL (14.1-18.0); Immature Granulocytes # 0.03 10^3uL; Immature Granulocytes % 0.5 %; Lymphocytes # 1.1 K/mm3 (0.7-4.5); Lymphocytes % 18.8 % (10-50); Mean Corpuscular HGB Conc 31.5 g/dL (31.8-35.4); Mean Corpuscular Volume 85.5 fl (80-94); Mean Platelet Volume 9.8 fl (7.4-10.4); Monocytes # 0.5 K/mm3 (0.1-1.0); Monocytes % 8.7 % (1.7-9.3); Neutrophils # 3.8 K/mm3 (1.8-7.8); Neutrophils % 66.7 % (37.0-80.0); Nucleated Red Blood Cells # 0 10^3/uL; Nucleated Red Blood Cells % 0 %; Platelet Count 141 K/mm3 (142-424); Red Blood Count 6.12 M/mm3 (4.60-6.20); Red Cell Distribution Width 13.6 % (11.5-17.5); Red Cell Distribution Width-SD 42.5 fL; White Blood Count 5.7 K/mm3 (4.8-10.8)
[2024-09-05 12:23] LABS: Albumin Level 4.4 g/dl (3.5-5.0); Chloride 107 mmol/L (98-107)
[2024-09-05 12:24] LABS: Potassium 4.6 mmoL/L (3.5-5.1); Sodium 138 mmol/L (136-145)
--- NOTE | 2024-09-05 12:25 | PC.NURSE ---
spoke to [employer]. will be faxing interrogation report.
[2024-09-05 12:26] LABS: Alanine Aminotransferase 22 U/L (12-78); Alkaline Phosphatase 82 U/L (38-126); Anion Gap 7.6 mEq/L (5-15); Aspartate Amino Transferase 26 U/L (17-59); Bilirubin,Total 1.1 mg/dl (0.2-1.3); Blood Urea Nitrogen 18 mg/dl (9-20); Carbon Dioxide 28 mmol/L (22.0-30.0); Estimated Glomerular Filt Rate 51 ml/min (>60); GFR (African American) 61 ML/MIN (>60)
[2024-09-05 12:27] LABS: Albumin/Globulin Ratio 1.7 (1.1-1.8); Calcium 9.2 mg/dl (8.4-10.2); Globulin 2.6 g/dL (1.3-3.2); Glucose 95 mg/dl (74-100)
[2024-09-05 12:28] LABS: Magnesium 2.3 mg/dl (1.6-2.3)
--- NOTE | 2024-09-05 12:48 | PC.NURSE ---
mary del valle on phone with rep from [employer] for results of device interrogation
[2024-09-05 12:50] LABS: Creatinine Clearance Estimated 58 mL/min (50-200); Troponin I < 0.01 ng/ml (0.00-0.034)
--- NOTE | 2024-09-05 13:04 | XR_ITS ---
PROCEDURE INFORMATION: Exam: XR Chest Exam date and time: 09/05/2024 1:07 PM Age: 64 years old Clinical indication: Other: Possible aicd shock TECHNIQUE: Imaging protocol: Radiologic exam of the chest. Views: 2 views. COMPARISON: CR XR CHEST PORTABLE 05/25/2023 8:38 AM FINDINGS: Tubes, catheters and devices: There is a multi lead AICD/pacemaker on the left side of the chest. Lungs: Unremarkable. No consolidation. Pleural spaces: Unremarkable. No pleural effusion. No pneumothorax. Heart/Mediastinum: Unremarkable. No cardiomegaly. Bones/joints: Unremarkable. IMPRESSION: No acute findings.
[2024-09-05] MEDS: ACETAMINOPHEN 500MG TAB 1000 MG PO (13:14)
[2024-09-05] MEDS: ONDANSETRON 4MG ODT 4 MG SL (13:14)
[2024-09-05 13:23] LABS: Magnesium 2.2 mg/dl (1.6-2.3)
[2024-09-05 13:28] LABS: D-Dimer 0.51 ug/mL (0.0-0.5)
[2024-09-05 13:34] LABS: NT Pro Brain Natriuretic Pep. 469 pg/mL (0-125)
[2024-09-05 13:51] LABS: HIV Combo NEGATIVE (Negative)
[2024-09-05 13:59] LABS: Hepatitis C Ab Qual. W/ RFX NEGATIVE (Negative)
[2024-09-05 16:25] LABS: Troponin I < 0.01 ng/ml (0.00-0.034)
== END 2024-09-05 16:37 | disposition home or self-care (01) ==
PROVIDERS: Physician Assistant; Emergency Provider Emergency Medicine; PCP Internal Medicine Adolescent Medicine
DX: R07.89 Other chest pain (principal); M79.602 Pain in left arm; I25.10 Atherosclerotic heart disease of native coronary artery without angina pectoris; I50.20 Unspecified systolic (congestive) heart failure; I11.0 Hypertensive heart disease with heart failure; Z95.810 Presence of automatic (implantable) cardiac defibrillator; Z11.59 Encounter for screening for other viral diseases; Z11.4 Encounter for screening for human immunodeficiency virus [HIV]
CPT/HCPCS: 71046; 80053; 83735; 83880; 84484; 85025; 85378; 86803; 87389; 93005; 99285; Q0162